=== PATIENT | male | born 1975 | race Caucasian/White ===

== ENCOUNTER 2016-04-16 20:40 | Inpatient (IN) | payer OTHER ==
[~2016-04-16] VITALS: Ht 170.2 cm; Wt 67.6 kg
[~2016-04-16 20:40] MED LIST: AMOXICILLIN875 MG PO; NORCO 5/3251 TABLET PO
[2016-04-17 00:18] LABS: CHLORIDE 106 mEq/L (99-109); POTASSIUM 4.2 mEq/L (3.7-5.4); SODIUM 141 mEq/L (136-147)
[2016-04-17 00:19] LABS: RED BLOOD COUNT 4.95 M/uL (4.00-5.50)
[2016-04-17 00:20] LABS: GLUCOSE 117 mg/dL (70-99); HEMATOCRIT 43.2 % (38.0-50.0); MCH 30.3 PG (29.0-34.0); MCHC 34.7 G/DL (30.0-36.0); MCV 87.3 FL (86-99); MEAN PLAT.VOLUME 9.2 uM^3 (9.0-12.4); PLATELET COUNT 357 K/uL (156-360); RBC DIS.WIDTH-CV 12.5 % (11.8-14.6)
[2016-04-17 00:21] LABS: ANION GAP 9 MEQ/L (2-14)
[2016-04-17 00:22] LABS: TOTAL BILIRUBIN 0.6 mg/dL (0.0-1.0)
[2016-04-17 00:24] LABS: ALKALINE PHOSPHATASE 72 IU/L (3-129); GFR ESTIMATE (CALCULATED) > 59 mL/min/
[2016-04-17 00:25] LABS: UREA NITROGEN (BUN) 15 mg/dL (9-23)
[2016-04-17 00:27] LABS: LIPASE 4 U/L (1.0-51.0)
[2016-04-17 00:35] LABS: ADD MIUA? NO; BILIRUBIN NEGATIVE; BLOOD NEGATIVE; COLOR DK YELLOW ((YELLOW)); GLUCOSE (STRIP) NEGATIVE; KETONES NEGATIVE; LEUKOCYTES NEGATIVE; NITRITE NEGATIVE; PROTEIN (STRIP) TRACE; SPECIFIC GRAVITY 1.029 (1.000-1.030); UCUL ADDED? NO
[2016-04-17] MEDS ORDERED: ADVIL,NUPRIN,M200 MG PO (01:49)
[2016-04-17 06:14] LABS: EOSINOPHIL COUNT 0.4 K/uL (0-0.3); HEMATOCRIT 38.7 % (38.0-50.0); IMMATURE GRANULOCYTE (%) 0.2 % (0.0-0.7); IMMATURE GRANULOCYTE COUNT 0.3 K/uL; LYMPHOCYTE COUNT 2.7 K/uL (1.0-2.8); MCH 29.9 PG (29.0-34.0); MCHC 34.1 G/DL (30.0-36.0); MCV 87.8 FL (86-99); MEAN PLAT.VOLUME 9.1 uM^3 (9.0-12.4); MONOCYTE (%) 10.8 % (3-12); MONOCYTE COUNT 1.3 K/uL (0-0.8); NEUTROPHIL (%) 63.4 % (45-76); NEUTROPHIL COUNT 7.8 K/uL (1.8-6.4); PLATELET COUNT 343 K/uL (156-360); RBC DIS.WIDTH-CV 12.4 % (11.8-14.6); RBC DIS.WIDTH-SD 39.3 % (39-53); RED BLOOD COUNT 4.41 M/uL (4.00-5.50); WHITE BLOOD COUNT 12.2 K/uL (4.1-10.2)
[2016-04-17 06:26] LABS: CHLORIDE 109 mEq/L (99-109); POTASSIUM 4.1 mEq/L (3.7-5.4); SODIUM 141 mEq/L (136-147)
[2016-04-17 06:28] LABS: GLUCOSE 108 mg/dL (70-99)
[2016-04-17 06:29] LABS: ANION GAP 6 MEQ/L (2-14)
[2016-04-17 06:32] LABS: GFR ESTIMATE (CALCULATED) > 59 mL/min/
[2016-04-17 06:33] LABS: UREA NITROGEN (BUN) 14 mg/dL (9-23)
[2016-04-17 07:09] VITALS: BP 110/66
[2016-04-17 12:04] VITALS: BP 113/59
[2016-04-17 15:26] VITALS: BP 109/64
[2016-04-17 19:35] VITALS: BP 121/69
[2016-04-18 00:22] VITALS: BP 125/66
[2016-04-18 04:35] VITALS: BP 117/59
[2016-04-18 06:16] LABS: HEMATOCRIT 39.5 % (38.0-50.0); MCH 30.1 PG (29.0-34.0); MCHC 34.2 G/DL (30.0-36.0); MEAN PLAT.VOLUME 9.6 uM^3 (9.0-12.4); PLATELET COUNT 316 K/uL (156-360); RBC DIS.WIDTH-SD 38.6 % (39-53); RED BLOOD COUNT 4.49 M/uL (4.00-5.50); WHITE BLOOD COUNT 8.7 K/uL (4.1-10.2)
[2016-04-18 06:44] LABS: ANION GAP 14 MEQ/L (2-14); CHLORIDE 102 MEQ/L (99-109); GFR ESTIMATE (CALCULATED) > 59 mL/min/; POTASSIUM 3.7 MEQ/L (3.7-5.4); SAMPLE HEMOLYSIS CHECK 0; SAMPLE ICTERIC CHECK 0; SAMPLE LIPEMIA CHECK 0; SODIUM 136 MEQ/L (136-147); UREA NITROGEN (BUN) 13 mg/dL (9-23)
[2016-04-18 06:46] LABS: GLUCOSE 67 mg/dL (70-99)
[2016-04-18 08:44] VITALS: BP 123/68
[2016-04-18 11:08] VITALS: BP 118/72
[2016-04-18 16:22] VITALS: BP 138/77
[2016-04-18 23:31] VITALS: BP 140/74
[2016-04-19 08:39] VITALS: BP 117/67
[2016-04-19 16:00] VITALS: BP 120/73
[2016-04-19] MEDS ORDERED: NICOTINE PATCH1 EAC2 TD (20:15)
[2016-04-19] MEDS ORDERED: NORCO 5/3251 TABLET PO (20:15)
[2016-04-19] MEDS ORDERED: COLACE100 MG PO (20:16)
[2016-04-19] MEDS ORDERED: CIPRO500 MG PO (20:23)
[2016-04-19] MEDS ORDERED: FLAGYL250 MG PO (20:23)
[2016-04-20 00:10] VITALS: BP 122/68
[2016-04-20 07:45] VITALS: BP 128/69
== END 2016-04-20 11:59 | disposition home or self-care (01) | DRG 392 ==
LOC: EME 20:40 → 3EAST 04-17 01:53 → EDOF 04-17 01:53 → 3EAST 04-17 07:05
PROVIDERS: Nurse Practitioner Family; Thoracic Surgery (Cardiothoracic Vascular Surgery)
DX: K57.80 Diverticulitis of intestine, part unspecified, with perforation and abscess without bleeding (principal); F17.200 Nicotine dependence, unspecified, uncomplicated
CPT/HCPCS: 36415; 74177; 80048; 80053; 81003; 83690; 85025; 85027; 87086; 99281; 99285; J1170; J1335; J1644; J2270; J2405; J2543; J7030; J7050; J7120

== ENCOUNTER 2017-06-01 20:04 | Emergency (ER) | payer OTHER ==
[~2017-06-01] VITALS: Ht 170.2 cm; Wt 65.1 kg
[~2017-06-01 20:04] MED LIST changes: +ADVIL,NUPRIN,M200 MG PO; +CIPRO500 MG PO; +COLACE100 MG PO; +FLAGYL250 MG PO; +NICOTINE PATCH1 EAC2 TD
[2017-06-01 20:54] LABS: HEMATOCRIT 47.5 % (38.0-50.0); HEMOGLOBIN 16.1 G/DL (12.5-16.6); MCH 29.7 PG (29.0-34.0); MCHC 33.9 G/DL (30.0-36.0); MCV 87.5 FL (86-99); PLATELET COUNT 287 K/uL (156-360); RBC DIS.WIDTH-CV 12.7 % (11.8-14.6); RBC DIS.WIDTH-SD 40.5 % (39-53); RED BLOOD COUNT 5.43 M/uL (4.00-5.50); WHITE BLOOD COUNT 12.1 K/uL (4.1-10.2)
[2017-06-01 21:07] LABS: CHLORIDE 106 MEQ/L (99-109); POTASSIUM 4.2 MEQ/L (3.7-5.4); SODIUM 137 MEQ/L (136-147); TOTAL BILIRUBIN 0.5 MG/DL (0.0-1.0)
[2017-06-01 21:14] LABS: ALKALINE PHOSPHATASE 65 IU/L (3-129); ALT (GPT) 8 IU/L (3-49); AST (GOT) 10 IU/L (2-34); CREATININE 0.9 MG/DL (0.6-1.3); GFR ESTIMATE (CALCULATED) > 59 mL/min/ (58.99-99999); GLUCOSE 100 mg/dL (70-99); UREA NITROGEN (BUN) 11 mg/dL (9-23)
[2017-06-01 21:34] LABS: APPEARANCE CLEAR ((CLEAR)); BILIRUBIN NEGATIVE; BLOOD SMALL; COLOR YELLOW ((YELLOW)); GLUCOSE (STRIP) NEGATIVE; KETONES NEGATIVE; LEUKOCYTES NEGATIVE; NITRITE NEGATIVE; PROTEIN (STRIP) NEGATIVE; SPECIFIC GRAVITY 1.015 (1.000-1.030)
[2017-06-01 21:39] LABS: BACTERIA NONE SEEN /HPF; EPITHELIAL CELLS NONE SEEN /HPF; MUCUS TRACE /LPF; RED BLOOD CELLS 0-5 /HPF (0-5); UCUL ADDED? NO; WHITE BLOOD CELLS 0-5 /HPF (0-5)
[2017-06-01 21:45] LABS: LIPASE < 3.0 U/L (1.0-51.0)
[2017-06-01] MEDS ORDERED: ZOFRAN ODT4 MG PO (23:53)
[2017-06-01] MEDS ORDERED: CIPRO500 MG PO (23:53)
[2017-06-01] MEDS ORDERED: FLAGYL500 MG PO (23:53)
[2017-06-01] MEDS ORDERED: PERCOCET 5/31 TABLET PO (23:53)
[2017-06-02 00:39] VITALS: BP 123/78
== END 2017-06-02 00:40 | disposition home or self-care (01) ==
LOC: EME 20:04
DX: K57.32 Diverticulitis of large intestine without perforation or abscess without bleeding (principal); F17.200 Nicotine dependence, unspecified, uncomplicated
CPT/HCPCS: 74177; 80053; 81003; 83690; 85027; 99281; 99285

== ENCOUNTER 2017-06-04 16:00 | Emergency (ER) | payer OTHER ==
[~2017-06-04] VITALS: Ht 170.2 cm; Wt 64.2 kg
[~2017-06-04 16:00] MED LIST changes: +FLAGYL500 MG PO; +PERCOCET 5/31 TABLET PO; +ZOFRAN ODT4 MG PO
[2017-06-04 16:42] LABS: HEMATOCRIT 46.7 % (38.0-50.0); MCH 29.8 PG (29.0-34.0); MCHC 34.3 G/DL (30.0-36.0); PLATELET COUNT 320 K/uL (156-360); RBC DIS.WIDTH-CV 12.5 % (11.8-14.6); RED BLOOD COUNT 5.37 M/uL (4.00-5.50); WHITE BLOOD COUNT 11.6 K/uL (4.1-10.2)
[2017-06-04 16:48] LABS: APPEARANCE CLEAR ((CLEAR)); BILIRUBIN SMALL; BLOOD NEGATIVE; GLUCOSE (STRIP) NEGATIVE; KETONES 5; LEUKOCYTES SMALL; NITRITE NEGATIVE; PROTEIN (STRIP) 30
[2017-06-04 16:51] LABS: ALBUMIN 3.9 g/dL (3.2-4.8)
[2017-06-04 16:52] LABS: CHLORIDE 107 mEq/L (99-109); POTASSIUM 4.4 mEq/L (3.7-5.4); SODIUM 138 mEq/L (136-147)
[2017-06-04 16:54] LABS: GLUCOSE 107 mg/dL (70-99); TOTAL PROTEIN 6.9 g/dL (6.4-8.3)
[2017-06-04 16:56] LABS: TOTAL BILIRUBIN 0.4 mg/dL (0.0-1.0)
[2017-06-04 16:57] LABS: ALKALINE PHOSPHATASE 69 IU/L (3-129)
[2017-06-04 16:58] LABS: CREATININE 0.9 mg/dL (0.6-1.3); GFR ESTIMATE (CALCULATED) > 59 mL/min/ (58.99-99999)
[2017-06-04 16:59] LABS: AST (GOT) 19 IU/L (2-34); UREA NITROGEN (BUN) 15 mg/dL (9-23)
[2017-06-04 17:00] LABS: ALT (GPT) 17 IU/L (3-49)
[2017-06-04 17:05] LABS: BACTERIA NONE SEEN /HPF; COLOR AMBER ((YELLOW)); EPITHELIAL CELLS RARE /HPF; HYALINE CASTS 0-5 /LPF; MUCUS 4+ /LPF; RED BLOOD CELLS 0-5 /HPF (0-5); UCUL ADDED? NO; WHITE BLOOD CELLS 0-5 /HPF (0-5)
[2017-06-04] MEDS ORDERED: PERCOCET 5/31 TABLET PO (20:27)
[2017-06-04] MEDS ORDERED: FLORASTOR250 MG PO (20:27)
[2017-06-04 20:41] VITALS: BP 138/93
== END 2017-06-04 20:45 | disposition home or self-care (01) ==
LOC: EME 16:00
DX: K57.32 Diverticulitis of large intestine without perforation or abscess without bleeding (principal); Z87.891 Personal history of nicotine dependence
CPT/HCPCS: 74177; 80053; 81003; 85027; 99281; 99284; J2270; J7040